=== PATIENT | male | born 1945 | race Caucasian/White ===

== ENCOUNTER 2022-06-01 12:25 | Emergency (ER) | payer OTHER ==
--- OUTSIDE RECORDS SUMMARY | 2022-06-01 12:31 | XMS REPORT | Continuity of Care Document ---
:1945 Author Organization [facility] t Address [address] [place] [address] Care Team Providers Name Role Phone Jair Meredith MD Primary Care Physician Macario Man Attending Clinician Unavailable JAIR MEREDITH Attending Clinician Unavailable Lorraine Díaz PA-C Attending Clinician Unavailable Macario Man Admitting Clinician Unavailable UNDEFINED Admitting Clinician Unavailable Payers Payer Name Policy Type Policy Number Effective Date Expiration Date S ource Problems Condition Condition Condition Status Onset Resolution Last Treating Co mments Source Name Details Category Date Date Treatment Clinician Date Visit for Visit for Disease Active [facility] wound wound 8-30 st check check 00:00: Hospita 00 l Allergies, Adverse Reactions, Alerts Allergy Allergy Status Severity Reaction(s) Onset Inactive Treating Comm ents Source Name Type Date Date Clinician hydrochl DA Active SV HYPOKALEMIA [facility] [place] topirama DA Active SV BURNING/FREQ HC A te UENT 08 [facility] URINATION, 00:00: Hospit a BACK/GROIN 00 l of PAIN [place] olmesart DA Active SV HYPOKALEMIA [facility] an 08 [facility] 00:[facility]: [facility] [place] hydrochl DA Active SV HYPOKALEMIA 2022-0 [facility] orothiaz 08-24 Clear evelyne 00:00: [place] topiranj DA Active SV BURNING/FREQ HC A te UENT 08-24 Clear URINATION, 00:00: [place] BACK/GROIN 00 [facility] olmesrougon DA Active SV HYPOKALEMIA [facility] an 08-24 Clear 00:00: [place] 00 [facility] Active Low K+, Metho di an ty to 01-[address] adverse 00:00: talking Hospita reaction 00 l s to drug Topir[facility] Active Burning/f Met hodi te ty to 01-[address] adverse 00:00: urination Hospit a reaction 00 , back l s to pain, drug groin pain Family History Family Member Diagnosis Comments Start Date Stop Date Source Natural sister Diabetes [facility] Natural sister Cancer [facility] father Diabetes [facility] father Heart disease [facility] father Hypertension [facility] father Mental illness [facility] mother Cancer [facility] Social History Social Habit Start Date Stop Date Quantity Comments Source History of Current smoker [facility] tobacco use [facility] Alcohol intake 2018-01-26 2018-01-26 Current drinker of [facility] 00:00:00 00:00:00 [facility] Alcohol Comment 2018-01-24 2018-01-24 occasional [facility] 00:[facility] 00:00:00 Hospital Tobacco use and 2018-01-03 2018-01-03 Smokeless tobacco [facility] exposure 00:00:00 00:00:00 non-user Hospital Sex Assigned At [birth year] [facility] 00:00:00 00:00:00 Hospital Smoking Status Start Date Stop Date Source Ex-smoker 2018-01-03 00:00:00 2018-01-03 00:00:00 [facility] Medications Ordered Filled Start Stop Current Ordering Indication Dosage Frequency Signature Comments Components Source Medication Medication Date Date Medication? Clinician (SIG) Name Name irbesartan Yes 300mg QD Take 300 [facility] (AVAPRO) 8-[address] 300 MG 10:40: mouth Hospita tablet 53 daily. l verapamil Yes 240mg Q.5D Take 240 Met [facility] sustained 8-[address] release 10:40: mouth 2 Hospita (CALAN-SR) 53 (two) l 240 MG SR times a tablet day. fenofibrate 2018-0 Yes 145mg QD Take 145 M ethodi (TRICOR) 8-[address] 145 MG 10:40: mouth Hospita tablet 53 daily. l hydroCHLORO 2018-0 Yes 25mg QD Take 25 mg [facility] thiazide 8-[address] (HYDRODIURI 10:40: daily. Hosp jojo L) 25 MG 53 l tablet spironolact 2018-0 Yes 25mg QD Take 25 mg [facility] one 8-[address] (ALDACTONE) 10:40: daily. Hosp jojo 25 MG 53 l tablet ranitidine Yes 150mg Q.5D Take 150 [facility] (ZANTAC) 8-[address] 150 MG 10:40: mouth 2 Hospita tablet 53 (two) l times a day. magnesium Yes Take by Metho di 250 mg 8-[address] tablet 10:40: Hospita 53 l Procedures Procedure Date / Time Performed Performing Clinician [facility] e [id number] 2021-08-31 00:00:00 [facility] [place] [facility] [id number] 2021-08-31 00:00:00 [facility] Plan of Care Planned Activity Planned Date Details Comments Source Future Scheduled 2022-05-01 HEPATITIS B VACCINES [facility] Test 02:39:55 (1 of 3 - 3-dose series) [code = HEPATITIS B VACCINES (1 of 3 - 3-dose series)] Future Scheduled 2022-05-01 COVID-19 VACCINE (#1) [facility] Test 02:39:55 [code = COVID-19 VACCINE (#1)] Future Scheduled 2022-05-01 Hepatitis C screening [facility] Test 02:39:55 (procedure) [code = 391308769] Future Scheduled 2022-05-01 COLONOSCOPY SCREENING [facility] Test 02:39:55 [code = COLONOSCOPY SCREENING] Future Scheduled 2022-05-01 SHINGLES VACCINES (1 [facility] Test 02:39:55 of 2) [code = SHINGLES VACCINES (1 of 2)] Future Scheduled 2022-05-01 65+ PNEUMOCOCCAL [facility] Test 02:39:55 VACCINE (1 - PCV) [code = 65+ PNEUMOCOCCAL VACCINE (1 - PCV)] Future Scheduled 2022-05-01 INFLUENZA VACCINE Method [facility] Test 02:39:55 [code = INFLUENZA VACCINE] Encounters Start End Encounter Admission Attending Care Care Encounter Source Date/Time Date/Time Type Type Clinicians Facility Department ID 2021-08-31 2021-09-01 Inpatient KEITH Paulson ADMI [id number] 90 [facility] 07:23:00 11:34:00 Macario [facility] 2021-09-01 2021-09-01 Outpatient POLO Paulson SIST [id number] [facility] 10:25:00 10:25:00 Macario 28 [facility] 2021-08-24 2021-08-24 Outpatient KEITH Paulson 3DAY [id number] [facility] 09:00:00 23:00:00 Macario 07 [facility] 2021-08-24 2021-08-24 Outpatient POLO Man LABO [id number] [facility] 16:13:00 16:13:00 Macario Vargas [facility] 2021-02-10 2021-02-10 Outpatient [facility] [id number] [place] 00:00:00 00:00:00 JAIR [address] 2021-02-10 2021-02-10 Outpatient [facility] [id number] [place] 00:00:00 00:00:00 JAIR [address] Results Test Description Test Time Test Comments Results Result Comments Source BASIC METABOLIC PANEL 2021-09-01 11:45:00 Test Item Value Reference Range Interpretation Comme nts SODIUM (test code = NA) 133 mEq/L 135-145 L POTASSIUM (test code = K) 4.7 mEq/L 3.5-5.0 CHLORIDE (test code = CL) 97 mEq/L 100-115 L CARBON DIOXIDE (test code = CO2) 23 mEq/L 22-31 GLUCOSE (test code = GLU) 176 mg/dL 65-110 H BLOOD UREA NITROGEN (test code = 28 mg/dL 7-18 H BUN) GLOMERULAR FILTRATION RATE (test 53.8 >60 Unit of measure: mL/min/1.73 code = GFR) [id number] Ran ge:Healthy Adults >90 mL/m in/1.73 m2 For Chronic Kidney Disease: Stage II Mild Decreas e in GFR 60-90 Stage III Moder ate Decrease in GFR 30-59 Stage IV Severe Decrease in GFR 15-29 Stage V Kidney Failure <15Unit of measure: mL/min /1.73 [id number] Ran ge:Healthy Adults >90 mL/m in/1.73 m2 For Chronic Kidney Disease: Stage II Mild Decreas e in GFR 60-90 Stage III Moder ate Decrease in GFR 30-59 Stage IV Severe Decrease in GFR 15-29 Stage V Kidney Failure <15 CREATININE (test code = CREAT) 1.3 mg/dL 0.7-1.3 CALCIUM (test code = CA) 8.4 mg/dL 8.4-10.2 SPECIMEN COMMENT: POD #[id number] METABOLIC [id number] 11:44:00 Test Item Value Reference Range Interpretation Comments SODIUM (test code = NA) 133 mEq/L 135-145 L POTASSIUM (test code = K) 4.7 mEq/L 3.5-5.0 N CHLORIDE (test code = CL) 97 mEq/L 100-115 L CARBON DIOXIDE (test code = CO2) 23 mEq/L 22-31 N GLUCOSE (test code = GLU) 176 mg/dL 65-110 H BLOOD UREA NITROGEN (test code = 28 mg/dL 7-18 H BUN) GLOMERULAR FILTRATION RATE (test 54 ml/min >60 L code = GFR) CREATININE (test code = CREAT) 1.3 mg/dL 0.7-1.3 N CALCIUM (test code = CA) 8.4 mg/dL 8.4-10.2 N SPECIMEN COMMENT: POD #[id number] 07:13:00 Test Item Value Reference Range Interpretation Comments HEMOGLOBIN (test code = HGB) 13.0 g/dL 12-16 N HEMATOCRIT (test code = HCT) 38.5 % 37-47 N SPECIMEN COMMENT: POD #[id number] 06:53:00 Test Item Value Reference Range Interpretation Comments GLUBED (test code = GLUBED) 188 mg/dL 60-125 H [id number] 20:18:00 Test Item Value Reference Range Interpretation Comments GLUBED (test code = GLUBED) 273 mg/dL 60-125 H [id number] 16:39:00 Test Item Value Reference Range Interpretation Comments GLUBED (test code = GLUBED) 179 mg/dL 60-125 H - XR KNEE 1 OR 2 V [id number] 16:34:00 [facility] [place] [facility] 1945 Sex: M Patient Name: ZOHRA MORGAN Unit No: [id number] EXAMS: CPT CODE: [id number] XR KNEE 1 OR 2 [place] LT [id number] IMAGES PROVIDED: 2 FINDINGS: Postoperative changes from left total knee arthoplasty demonstrated without evidence of immediate complication. No acute fracture is visualized. IMPRESSION: Postoperative exam as above. at 1634 Reported and signed by: Colton Valadez M.D. CC: Macario Man MD Technologist: BIMAL BANSAL (RT.R) Transcribed D/ (1634) [email or web address] [facility] NAME: ZOHRA MORGAN [address] [facility] PHYS: Macario Gillis MD : 1945 AGE: 75 SEX: M [place], [place] [address] LOC: Y.517 A PHONE #: [phone] EXAM DATE: 08/31/2021 STATUS: ADM IN FAX #: [phone] RAD #: D/CDT PAGE 1 Signed Report Patient Name: ZOHRA MORGAN Unit No: [id number] EXAMS: CPT CODE: [id number] XR KNEE 1 OR 2 [place] LT [id number] (Continued) Orig Print D/T: S: 08/31/2021 (1173) [facility] NAME: ZOHRA MORGAN [address] [facility] PHYS: Macario Gillis MD : 1945 AGE: 75 SEX: M [place], [place] [address] LOC: YLeah A PHONE #: [phone] EXAM DATE: 08/31/2021 STATUS: ADM IN FAX #: [phone] RAD #: D/C DT PAGE 2 Signed [id number] 08:23:00 Test Item Value Reference Range Interpretation Comments GLUBED (test code = GLUBED) 149 mg/dL 60-125 H Novel Coronavirus 2018 [id number] 05:34:00 Test Item Value Reference Range Interpretation Comments Novel Coronavirus Negative Negative Positive r esults are 2019 Inhouse (test indicativ e of the presence code = COVNONPUI) ofSARS-CoV -2 RNA, clinical correlation wit h patient historyand othe r diagnostic info rmation is necessary to determinepatien t infection status. Positiv e results do not rule out bacterial infection or co -infection with other viru ses. Negative result s do not preclude SARS-C oV-2 infection andsh ould not be used as the uday e basis for patient managementdecis ions. Negative result s must be combined with otherclinical observations, p atient history, and epidemiological information . Detection of SARS-CoV-2 RNA may be affe cted bysample collec tion methods, storag e conditions, and /or stageof infection. Kayla l RNA mutations, vacc inations, antiviraltherap eutics, antibiotics, chemotherapeuti c orimmunosuppres [place] drugs have not been e valuated for effectson d etection. Results are for the identification of SARS-CoV-2 RNA usingreal-time (RT) polymerase matthias n reaction (PCR) technolog yfor the qualitative det ection of nucleic acids f rom [id number] v irus and diagnosis of SA RS-CoV-2 virusinfection. It is an Emergency Use Authorization ( EUA) testauthorized by the U.S. FDA. Novel Coronavirus 2018 [id number] 05:34:00 Test Item Value Reference Range Interpretation Comments Novel Coronavirus Negative Negative Positive r esults are 2019 Inhouse (test indicativ e of the presence code = COVNONPUI) ofSARS-CoV -2 RNA, clinical correlation wit h patient historyand othe r diagnostic info rmation is necessary to determinepatien t infection status. Positiv e results do not rule out bacterial infection or co -infection with other viru ses. Negative result s do not preclude SARS-C oV-2 infection andsh ould not be used as the uday e basis for patient managementdecis ions. Negative result s must be combined with otherclinical observations, p atient history, and epidemiological information . Detection of SARS-CoV-2 RNA may be affe cted bysample collec tion methods, storag e conditions, and /or stageof infection. Kayla l RNA mutations, vacc inations, antiviraltherap eutics, antibiotics, chemotherapeuti c orimmunosuppres [place] drugs have not been e valuated for effectson d etection. Results are for the identification of SARS-CoV-2 RNA usingreal-time (RT) polymerase matthias n reaction (PCR) technolog yfor the qualitative det ection of nucleic acids f rom [id number] v irus and diagnosis of SA RS-CoV-2 virusinfection. It is an Emergency Use Authorization ( EUA) testauthorized by the U.S. FDA. COMPREHENSIVE METABOLIC [id number] 19:19:00 Test Item Value Reference Range Interpretation Comments SODIUM (test code = NA) 136 mmol/L 136-145 N POTASSIUM (test code = 3.8 mmol/L 3.5-5.1 N K) CHLORIDE (test code = 98.0 mmol/L 98-107 N CL) CARBON DIOXIDE (test 27.9 mmol/L 21-32 N code = CO2) GLUCOSE (test code = 110 mg/dL 70-110 N GLU) BLOOD UREA NITROGEN 21 mg/dL 7-18 H (test code = BUN) GLOMERULAR FILTRATION 80.2 >60 Unit o f measure: RATE (test code = GFR) mL/mi n/1.73 [id number] Range:Healthy Adults >90 mL/min/1.73 m2 For Chronic Kidney Disease: Stage II Mild Decrease i n GFR 60-90 Stage III Moderate Decrea se in GFR 30-59 St age IV Severe Decre ase in GFR 15-29 St age V Kidney Failur e <15 CREATININE (test code = 0.92 mg/dL 0.55-1.30 N CREAT) TOTAL PROTEIN (test 7.3 g/dL 6.4-8.2 N code = PROT) ALBUMIN (test code = 4.1 g/dL 3.4-5.0 N ALB) GLOBULIN (test code = 3.2 g/dL 2.2-4.2 N GLOB) ALBUMIN/GLOBULIN RATIO 1.3 0.7-2.0 N (test code = A/G) CALCIUM (test code = 9.7 mg/dL 8.2-10.1 N CA) BILIRUBIN TOTAL (test 0.60 mg/dL 0.2-1.00 N code = BILT) SGOT/AST (test code = 16.0 U/L 15-37 N AST) SGPT/ALT (test code = 37.0 U/L 12-78 N Please note new ALT) normal range. ALKALINE PHOSPHATASE 59 U/L 46-116 N TOTAL (test code = ALKP) CBC W/AUTO [id number] 17:24:00 Test Item Value Reference Range Interpretation Comments WHITE BLOOD CELL (test code = WBC) 10.9 K/mm3 5.7-10.5 H RED BLOOD CELL (test code = RBC) 5.29 M/mm3 4.2-5.4 N HEMOGLOBIN (test code = HGB) 16.0 g/dL 12-16 N HEMATOCRIT (test code = HCT) 46.5 % 37-47 N MEAN CELL VOLUME (test code = MCV) 88 fL 80-98 N MEAN CELL HGB (test code = MCH) 30.2 pg 27-34 N MEAN CELL HGB CONCENTRATION (test 34.4 g/dL 30.8-34.1 H code = MCHC) RED CELL DISTRIBUTION WIDTH (test 13.0 % 11-16 N code = RDW) PLT (test code = PLT) 218 K/mm3 130-400 N MEAN PLATELET VOLUME (test code = 11.5 fL 8.9-12.1 N MPV) NEUTROPHIL % (test code = NT%) 67.3 % 45-70 N LYMPHOCYTE % (test code = LY%) 21.1 % 20-40 N MONOCYTE % (test code = MO%) 9.6 % 3-10 N EOSINOPHIL % (test code = EO%) 1.0 % 1-5 N BASOPHIL % (test code = BA%) 0.7 % 0.0-1.1 N NEUTROPHIL # (test code = NT#) 7.34 K/mm3 2.00-7.50 N LYMPHOCYTE # (test code = LY#) 2.30 K/mm3 1.50-4.00 N MONOCYTE # (test code = MO#) 1.05 K/mm3 0.2-0.8 H EOSINOPHIL # (test code = EO#) 0.11 K/mm3 0.04-0.4 N BASOPHIL # (test code = BA#) 0.08 K/mm3 0.02-0.10 N MANUAL DIFF REQUIRED (test code = NO MANUAL DIFF MDIFF) NUCLEATED RED BLOOD CELL (test 0 % 0-0 N code = NRBC) Chemistry - BNP, HgbA1c, [id number] 02:21:00 Test Item Value Reference Range Interpretation Comments Chemistry - BNP, HgbA1c, Less than 10.0 pg/mL 0-100 N PTHi (test code = BNP) [id number] 00:38:00 Test Item Value Reference Range Interpretation Comments Chemistry (test code 134 mmol/L 136-145 L = NA-T) Chemistry (test code 5.0 mmol/L 3.5-5.1 N = K-T) Chemistry (test code 100 mmol/L 98-107 N = CL) Chemistry (test code 23 mmol/L 23-31 N = CO2) Chemistry (test code 16 mmol/L 10-20 N = ANGP) Chemistry (test code 27 mg/dL 8.4-25.7 H = BUN) Chemistry (test code 1.37 mg/dL 0.6-1.3 H = CREATT) Chemistry (test code 51 Referen ce Range for = EGFRMDRD) Estimated GFR: Greater than 90 mL/min/ 1.73 m2NOTE:The MDRD equation has no t been validated for u se with theelderly (ove r 70 years of age), women, patients with serious comorbi d condition or pe rsons with extremes o fbody size, muscle ma ss, or nutritional sta tus. Chemistry (test code 128 mg/dL 83-110 H = GLU-T) Chemistry (test code 9.9 mg/dL 7.8-10.44 N = CA) Chemistry (test code 0.4 mg/dL 0.2-1.2 N = TBILI) Chemistry (test code 7.1 g/dL 5.8-8.1 N = TP) Chemistry (test code 4.3 g/dL 3.4-4.8 N = ALB) Chemistry (test code 2.8 g/dL 2.4-3.5 N = GLOB) Chemistry (test code 1.5 g/dL 1.2-2.2 N = AG) Chemistry (test code 41 U/L 40-150 N = ALP) Chemistry (test code 24 U/L 5-34 N = AST) Chemistry (test code 23 U/L 8-55 N = ALT) [id number] 00:15:00 Test Item Value Reference Range Interpretation Comments Hematology (test code = WBCT) 10.1 thou/uL 4.8-10.8 N Hematology (test code = RBCT) 4.36 mill/uL 4.70-6.10 L Hematology (test code = HGBT) 13.8 g/dL 14.0-18.0 L Hematology (test code = HCTT) 41.3 % 42.0-52.0 L Hematology (test code = MCV) 94.9 fl 80.0-94.0 H Hematology (test code = MCH) 31.6 pg 27.0-31.0 H Hematology (test code = MCHC) 33.3 g/dL 32.0-36.0 N Hematology (test code = RDW) 11.5 % 11.5-14.5 N Hematology (test code = PLTT) 247 thou/uL 130-400 N Hematology (test code = MPV) 7.9 fL 7.4-10.4 N Hematology (test code = %NEUT) 55.9 % 42.0-75.0 N Hematology (test code = %LYMPH) 28.7 % 21.0-51.0 N Hematology (test code = %MONO) 12.6 % 0.0-10.0 H Hematology (test code = %EOS) 2.2 % 0.0-10.0 N Hematology (test code = %BASO) 0.5 % 0.0-1.0 N Hematology (test code = NEUT#) 5.6 thou/uL 1.40-6.50 N Hematology (test code = LYMPH#) 2.9 thou/uL 1.20-3.40 N Hematology (test code = MONO#) 1.3 thou/uL 0.11-0.59 H Hematology (test code = EOS#) 0.2 thou/uL 0.0-0.7 N Hematology (test code = BASO#) 0.1 thou/uL 0.0-0.2 N
[2022-06-01] MEDS ORDERED: NA CHLORIDE 0.9% 500 ML ONE (13:13)
[2022-06-01] MEDS ORDERED: MECLIZINE HCL 12.5 MG TAB ONE (13:13)
[2022-06-01] MEDS ORDERED: ONDANSETRON 4 MG/2 ML VIAL ONE (13:13)
--- NOTE | 2022-06-01 13:25 | RAD REPORT ---
EXAM DESCRIPTION: CT - Head Brain Wo Cont - 06/01/2022 1:15 pm CLINICAL HISTORY: Dizziness COMPARISON: 2007 TECHNIQUE: Computed axial tomography of the head was obtained. IV contrast was not requested. All CT scans are performed using dose optimization technique as appropriate and may include automated exposure control or mA/KV adjustment according to patient size. FINDINGS: An intracranial bleed is not seen . The ventricles are normal in caliber. No extra-axial fluid collection is noted. No significant hypodensity the brain Fluid within the sinuses/ mastoids is not seen. A mucus retention cyst right maxillary sinus IMPRESSION: No acute intracranial abnormality is seen. If patient's symptoms persist MRI of the bra in would be recommended.
[2022-06-01 13:59] LABS: Absolute Lymphocytes (CBC) 1.3 K/uL (0.7-4.9); Hematocrit 46.5 % (39.6-49.0); Lymphocytes % 13.3 % (15.3-44.8); MCV 89.6 fL (80-100); MPV 9.1 fL (7.6-11.3); RBC Red Blood Cell Count 5.19 M/uL (4.33-5.43)
[2022-06-01 14:04] LABS: Protime INR 1.08
[2022-06-01 14:18] LABS: Potassium 3.5 mmol/L (3.5-5.1); Troponin High Sensitivity 5.7 pg/mL (<58.9)
[2022-06-01] MEDS ORDERED: PROMETHAZINE INJ 25 MG/ML AMP ONE (15:29)
[2022-06-01] MEDS ORDERED: MORPHINE 4 MG/ML SYR ONE (15:30)
--- NOTE | 2022-06-01 15:38 | RAD REPORT ---
EXAM DESCRIPTION: MRI - Brain W/Wo Cont - 06/01/2022 3:23 pm CLINICAL HISTORY: vertigo, rule out CVA COMPARISON: MRI BRAIN WITHOUT CONTRAST dated 06/02/2010; Head Brain Wo Cont dated 06/01/2022 TECHNIQUE: Sagittal and axial T1-weighted images were obtained. Axial PD/heavily T2-weighted and T2- FLAIR images were obtained along with axial DWI/ADC mapping sequences. Coronal heavily T2 weighted s equence obtained. Axial and coronal post-contrast T1-weighted images were also obtained. A 20 ml Mul tihance contrast following utilized. FINDINGS: No intracranial hemorrhage, mass or acute infarction. There is no edema or shift of midli ne structures. No extra-axial fluid collections. Angel-matter/white matter junction is preserved. Sig nal voids are seen as a normal finding in the major intracranial vessels. Ventricles are normal. Atro phy changes are minimal. Cerebral white matter chronic ischemic change also minimal. Post-contrast images show normal enhancement. No dural thickening. Mastoid air cells and paranasal sinuses are clear. IMPRESSION: No acute infarction. No mass or other acute intracranial finding. Atrophy and chronic ischemic change are minimal.
--- NOTE | 2022-06-01 15:47 | EDPHYS ---
Physician Documentation [facility] Name: Brian Crespo Jr Age: 76 yrs Sex: Male : 1945 Arrival Date: 06/01/2022 Time: 12:29 Bed 5 Private MD: ED Physician Rudy Moreno HPI: 06/01 15:43 This 76 yrs old Male presents to ER via Ambulatory with complaints of Dizziness, rn Vomiting. 15:43 The patient presents with dizziness, sense of spinning, vertigo. Onset: The rn symptoms/episode began/occurred this morning. Context: occurred at home, occurred while the patient was getting up from bed. Modifying factors: The symptoms are alleviated by holding head still, lying down, the symptoms are aggravated by movement of head, standing up, changing position. Associated signs and symptoms: Pertinent positives: nausea, vomiting, Pertinent negatives: abdominal pain, blurred vision, chest pain, focal weakness, headache, seizure, shortness of breath, syncope. Severity of symptoms: At their worst the symptoms were moderate in the emergency department the symptoms have improved. The patient has experienced a previous episode. The patient has not recently seen a physician. Historical: - Allergies: 12:56 benicar hcl; vg1 - PMHx: 12:56 Hypertension; hypo kalemia; TIA; UTI; vg1 - Immunization history:: Client reports receiving the 2nd dose of the Covid vaccine. - Social history:: Smoking status: Patient/guardian denies using tobacco, the patient reports quitting approximately 40 years ago. - Family history:: not pertinent. - Hospitalizations: : No recent hospitalization is reported. ROS: 15:43 Constitutional: Negative for fever, chills, and weight loss, Eyes: Negative for injury, rn pain, redness, and discharge, Neck: Negative for injury, pain, and swelling, Cardiovascular: Negative for chest pain, palpitations, and edema, Respiratory: Negative for shortness of breath, cough, wheezing, and pleuritic chest pain, Abdomen/GI: Negative for abdominal pain, diarrhea, and constipation, Back: Negative for injury and pain, : Negative for injury, bleeding, discharge, and swelling, MS/Extremity: Negative for injury and deformity, Skin: Negative for injury, rash, and discoloration, Neuro: Negative for headache, weakness, numbness, tingling, and seizure. Exam: 15:39 ECG was reviewed by the Attending Physician. rn 15:43 Constitutional: This is a well developed, well nourished patient who is awake, alert, rn and in no acute distress. Head/Face: Normocephalic, atraumatic. Eyes: Periorbital areas with no swelling, redness, or edema. Cardiovascular: Regular rate and rhythm. No pulse deficits. Respiratory: No increased work of breathing, no retractions or nasal flaring. Abdomen/GI: Soft, non-tender Skin: Warm, dry with normal turgor. Normal color with no rashes, no lesions, and no evidence of cellulitis. MS/ Extremity: Pulses equal, no cyanosis. Neurovascular intact. Full, normal range of motion. Equal circumference. Neuro: Awake and alert, GCS 15, oriented to person, place, time, and situation. Cranial nerves II-XII grossly intact. Motor strength 5/5 in all extremities. Sensory grossly intact. Walks with cane. Vital Signs: 12:57 BP 154 / 65; Pulse 79; Resp 17; Temp 97.9(O); Pulse Ox 98% on R/A; Weight 113.4 kg; vg1 Height 5 ft. 7 in. (170.18 cm); Pain 0/10; 15:05 BP 137 / 64; Pulse 66; Resp 17 S; Pulse Ox 97% on R/A; Pain 0/10; kc6 12:57 Body Mass Index 39.16 (113.40 kg, 170.18 cm) vg1 MDM: 12:54 Patient medically screened. rn 15:43 Differential diagnosis: CVA, generalized weakness, hypovolemia, idiopathic dizziness, rn TIA, vertigo. Data reviewed: vital signs, nurses notes, lab test result(s), EKG, radiologic studies, CT scan, MRI, and as a result, I will discharge patient. Counseling: I had a detailed discussion with the patient and/or guardian regarding: the historical points, exam findings, and any diagnostic results supporting the discharge/admit diagnosis, lab results, radiology results, the need for outpatient follow up, to return to the emergency department if symptoms worsen or persist or if there are any questions or concerns that arise at home. Response to treatment: the patient's symptoms have markedly improved after treatment, and as a result, I will discharge patient. Special discussion: I discussed with the patient/guardian in detail that at this point there is no indication for admission to the hospital. It is understood, however, that if the symptoms persist or worsen the patient needs to return immediately for re-evaluation. Based on the history and exam findings, there is no indication for further emergent testing or inpatient evaluation. I discussed with the patient/guardian the need to see the neurologist for further evaluation of the symptoms. ED course: Pt feels much better, minimal dizziness. MRI brain and ct neg. Sees Dr. Post for neurology. . 06/01 13:03 Order name: Basic Metabolic Panel; Complete Time: 15:40 rn 06/01 13:03 Order name: CBC with Diff; Complete Time: 15:40 rn 06/01 13:03 Order name: Magnesium; Complete Time: 15:40 rn 06/01 13:03 Order name: Protime (+inr); Complete Time: 15:40 rn 06/01 13:03 Order name: Ptt, Activated; Complete Time: 15:40 rn 06/01 13:03 Order name: Troponin High Sensitivity; Complete Time: 15:40 rn 06/01 13:03 Order name: CT Head Brain wo Cont; Complete Time: 15:40 rn 07 14:44 Order name: Brain W/Wo Cont; Complete Time: 15:40 EDMS 06/01 13:03 Order name: EKG; Complete Time: 13:03 rn 06/01 13:03 Order name: Cardiac monitoring; Complete Time: 13:50 rn 06/01 13:03 Order name: EKG - Nurse/Tech; Complete Time: 13:25 rn 06/01 13:03 Order name: IV Saline Lock; Complete Time: 13:50 rn 07 13:03 Order name: Labs collected and sent; Complete Time: 13:50 rn 06/01 13:03 Order name: O2 Per Protocol; Complete Time: 13:50 rn 06/01 13:03 Order name: O2 Sat Monitoring; Complete Time: 13:50 rn EC:39 Rate is 68 beats/min. Rhythm is regular. QRS [place] is Normal. [place] interval is normal. QRS rn interval is normal. QT interval is normal. No Q waves. T waves are Normal. No ST changes noted. Clinical impression: NSR w/ Non-specific ST/T Changes. Interpreted by me. Reviewed by me. Administered Medications: 13:49 Drug: Meclizine 50 mg Route: PO; kc6 16:15 Follow up: Response: No adverse reaction kc6 13:49 Drug: Zofran (Ondansetron) 4 mg Route: IVP; Site: left forearm; kc6 16:15 Follow up: Response: No adverse reaction; Nausea is decreased kc6 13:49 Drug: NS 0.9% 500 ml Route: IV; Rate: bolus; Site: left forearm; kc6 16:15 Follow up: Response: No adverse reaction; IV Status: Completed infusion; IV Intake: kc6 500ml Disposition Summary: 06/01/22 15:46 Discharge Ordered Location: Home rn Problem: new rn Symptoms: have improved rn Condition: Stable rn Diagnosis - Vertigo rn Followup: rn - With: Dwayne Post MD - When: As needed - Reason: Recheck today's complaints, Re-evaluation by your physician Discharge Instructions: - Discharge Summary Sheet rn - Vertigo rn Forms: - Medication Reconciliation Form rn - Thank You Letter rn - Antibiotic corporate intern - Prescription Opioid Use rn Prescriptions: - ondansetron 4 mg Oral tablet,disintegrating - place 1 tablet by TRANSLINGUAL route every 8 hours As needed; 15 tablet; rn Refills: 0, Product Selection Permitted - Meclizine 25 mg Oral Tablet - take 1 tablet by ORAL route every 8 hours As needed; 30 tablet; Refills: 0, rn Product Selection Permitted Signatures: Dispatcher [employer] EDMS Rudy Moreno MD MD rn Garcia, Victoria RN RN vg1 Lauren Trejo, RN RN kc6 Corrections: (The following items were deleted from the chart) 14:44 13:09 Brain With Cont ordered. EDMS EDMS 15:26 14:42 Brain Wo Cont+MRI.RAD.BRZ ordered. EDMS EDMS
--- NOTE | 2022-06-01 15:47 | ER ---
Nurse's Notes [facility] Name: Brian Crespo Jr Age: 76 yrs Sex: Male : 1945 Arrival Date: 06/01/2022 Time: 12:29 Bed 5 Private MD: Diagnosis: Vertigo Presentation: 06/01 12:54 Chief complaint: Patient states: dizziness and nausea since this morning, stated vg1 "laying down makes it worse". Denies h/a or blurred vision. Ebola Screen: Patient negative for fever greater than or equal to 101.5 degrees Fahrenheit, and additional compatible Ebola Virus Disease symptoms. Risk Assessment: Do you want to hurt yourself or someone else? Patient reports no desire to harm self or others. Onset of symptoms was June 01, 2022. 12:54 Method Of Arrival: Ambulatory vg1 12:54 Acuity: AMADO 3 vg1 12:57 Coronavirus screen: Vaccine status: Patient reports receiving the 2nd dose of the covid vg1 vaccine. Initial Sepsis Screen: Does the patient meet any 2 criteria? No. Patient's initial sepsis screen is negative. Does the patient have a suspected source of infection? No. Patient's initial sepsis screen is negative. Triage Assessment: 12:56 General: Appears in no apparent distress. comfortable, Behavior is calm, cooperative. vg1 Pain: Denies pain. Neuro: Level of Consciousness is awake, alert, obeys commands, Oriented to person, place, time, situation, Mock Up Assembler are equal bilaterally Moves all extremities. Gait is steady, Speech is normal, Facial symmetry appears normal, Reports dizziness, Denies weakness blurred vision. GI: Abdomen is round non-distended, Reports nausea. Historical: - Allergies: 12:56 benicar hcl; vg1 - PMHx: 12:56 Hypertension; hypo kalemia; TIA; UTI; vg1 - Immunization history:: Client reports receiving the 2nd dose of the Covid vaccine. - Social history:: Smoking status: Patient/guardian denies using tobacco, the patient reports quitting approximately 40 years ago. - Family history:: not pertinent. - Hospitalizations: : No recent hospitalization is reported. Screenin:50 Abuse screen: Denies threats or abuse. Denies injuries from another. Nutritional kc6 screening: No deficits noted. Tuberculosis screening: No symptoms or risk factors identified. Fall Risk None identified. Assessment: 13:50 General: Appears in no apparent distress. comfortable, Behavior is calm, cooperative, kc6 appropriate for age. Pain: Denies pain. Neuro: Barber Agitation-Sedation Scale (RASS): 0 - Alert and Calm Level of Consciousness is awake, alert, obeys commands, Oriented to person, place, time, situation, Appropriate for age. Neuro: Reports dizziness, Denies blurred vision headache. Cardiovascular: Heart tones S1 S2 present Capillary refill < 3 seconds. Respiratory: Airway is patent Trachea midline Respiratory effort is even, unlabored, Respiratory pattern is regular, symmetrical, Breath sounds are clear bilaterally. GI: Reports nausea, dry heaving Patient currently denies diarrhea, vomiting. GI: Abdomen is flat, non-distended, Bowel sounds present X 4 quads. Abd is soft and non tender X 4 quads. : No signs and/or symptoms were reported regarding the genitourinary system. EENT: No signs and/or symptoms were reported regarding the EENT system. Derm: No signs and/or symptoms reported regarding the dermatologic system. Skin is intact, Skin is pink, warm \\T\\ dry. Musculoskeletal: No signs and/or symptoms reported regarding the musculoskeletal system. Circulation, motion, and sensation intact. Capillary refill < 3 seconds, Range of motion: intact in all extremities. 14:05 Reassessment: Patient appears in no apparent distress at this time. No changes from kc6 previously documented assessment. Patient and/or family updated on plan of care and expected duration. Pain level reassessed. Patient is alert, oriented x 3, equal unlabored respirations, skin warm/dry/pink. Patient denies pain at this time. Patient states feeling better. Patient states symptoms have improved. 15:05 Reassessment: Patient appears in no apparent distress at this time. No changes from kc6 previously documented assessment. Patient and/or family updated on plan of care and expected duration. Pain level reassessed. Patient is alert, oriented x 3, equal unlabored respirations, skin warm/dry/pink. Patient denies pain at this time. Patient states feeling better. Patient states symptoms have improved. Vital Signs: 12:57 BP 154 / 65; Pulse 79; Resp 17; Temp 97.9(O); Pulse Ox 98% on R/A; Weight 113.4 kg; vg1 Height 5 ft. 7 in. (170.18 cm); Pain 0/10; 15:05 BP 137 / 64; Pulse 66; Resp 17 S; Pulse Ox 97% on R/A; Pain 0/10; kc6 12:57 Body Mass Index 39.16 (113.40 kg, 170.18 cm) vg1 ED Course: 12:29 Patient arrived in ED. rg4 12:54 Rudy Moreno MD is Attending Physician. rn 12:56 Triage completed. vg1 12:57 Arm band placed on. vg1 13:08 Lauren Trejo, ANA is Primary Nurse. kc6 13:17 CT Head Brain wo Cont In Process Unspecified. EDMS 13:50 Basic Metabolic Panel Sent. kc6 13:50 CBC with Diff Sent. kc6 13:50 Magnesium Sent. kc6 13:50 Protime (+inr) Sent. kc6 13:50 Ptt, Activated Sent. kc6 13:50 Troponin High Sensitivity Sent. kc6 13:50 Inserted saline lock: 20 gauge in left forearm, using aseptic technique. Blood kc6 collected. 15:24 Brain W/Wo Cont In Process Unspecified. EDMS 15:46 Dwayne Post MD is Referral Physician. rn 16:14 Patient has correct armband on for positive identification. Bed in low position. Call kc6 light in reach. Side rails up X2. Adult w/ patient. 16:14 No provider procedures requiring assistance completed. IV discontinued, intact, kc6 bleeding controlled, No redness/swelling at site. Pressure dressing applied. Administered Medications: 13:49 Drug: Meclizine 50 mg Route: PO; kc6 16:15 Follow up: Response: No adverse reaction kc6 13:49 Drug: Zofran (Ondansetron) 4 mg Route: IVP; Site: left forearm; kc6 16:15 Follow up: Response: No adverse reaction; Nausea is decreased kc6 13:49 Drug: NS 0.9% 500 ml Route: IV; Rate: bolus; Site: left forearm; kc6 16:15 Follow up: Response: No adverse reaction; IV Status: Completed infusion; IV Intake: kc6 500ml Medication: 16:14 VIS not applicable for this client. kc6 Intake: 16:15 IV: 500ml; Total: 500ml. kc6 Outcome: 15:46 Discharge ordered by . rn 16:14 Discharged to home ambulatory, with significant other. kc6 16:14 Condition: stable 16:14 Discharge instructions given to patient, significant other, Instructed on discharge instructions, follow up and referral plans. medication usage, Demonstrated understanding of instructions, follow-up care, medications, Prescriptions given X 2. 16:15 Patient left the ED. kc6 Signatures: Dispatcher [employer] EDMS Rudy Moreno MD MD rn Garcia, Rubi 4 Mindy Macdonald RN RN vg1 Lauren Trejo RN RN kc6
[2022-06-01 20:11] VITALS: TEMP 97.9
[2022-06-01 20:21] VITALS: BP 137/64; O2SAT 97
--- NOTE | 2022-06-02 16:02 | EKG ---
Test Date: 2022-06-01 Test Time: 13:22:52 Waist Pleater: SETH MEASUREMENT RESULTS: Intervals: Rate: 68 TN: 182 QRSD: 80 QT: 384 QTc: 408 [place]: P: 59 TN: 182 QRS: 17 T: 21 INTERPRETIVE STATEMENTS: Normal sinus rhythm Cannot rule out Anterior infarct, age undetermined Abnormal ECG Compared to ECG 12/18/2016 18:20:51 Myocardial infarct finding now present Electronically Signed On 06-02-22 16:00:21 SHOT FIREMAN by Behzad Lepe
== END 2022-06-01 16:15 | disposition home or self-care (01) ==
LOC: ER 12:25
DX: R42 Dizziness and giddiness (principal); I10 Essential (primary) hypertension; Z88.8 Allergy status to other drugs, medicaments and biological substances; Z86.73 Personal history of transient ischemic attack (TIA), and cerebral infarction without residual deficits
CPT/HCPCS: 85025; 80048; 36415; 83735; 85610; 85730; 84484; 70450; 70553; A9577; J2550; J8597; J7040; J2405; 93005